=== PATIENT | male | born 1970 | race Two or more races ===

== ENCOUNTER 2017-07-18 20:15 | Emergency (ER) | payer BC, OTHER ==
[~2017-07-18] VITALS: Ht 175.3 cm; Wt 89.6 kg
[~2017-07-18 20:15] MED LIST: ENAL2.5T PO; ENAL20TA PO; GLYB5TAB3 PO; METF10002 PO; METF500T4 PO; PRAV40TA2 PO
[2017-07-18 20:19] VITALS: BP 153/91
== END 2017-07-18 22:45 | disposition home or self-care (01) ==
LOC: ED 22:30
DX: S43.102A Unspecified dislocation of left acromioclavicular joint, initial encounter (principal); S29.011A Strain of muscle and tendon of front wall of thorax, initial encounter; E11.9 Type 2 diabetes mellitus without complications; E78.00 Pure hypercholesterolemia, unspecified; I10 Essential (primary) hypertension; X58.XXXA Exposure to other specified factors, initial encounter; Y93.89 Activity, other specified; Y99.8 Other external cause status; Y92.89 Other specified places as the place of occurrence of the external cause
CPT/HCPCS: 99284

== ENCOUNTER 2018-05-01 14:20 | Emergency (ER) | payer BC, MEDICAID ==
[~2018-05-01] VITALS: Ht 175.3 cm; Wt 92.0 kg
[~2018-05-01 14:20] MED LIST changes: -METF500T4 PO; +METF500T5 PO
[2018-05-01 14:26] VITALS: BP 147/99
[2018-05-01] MEDS ORDERED: LIDOCAINE 2%, 20ML SQ ONE (14:30)
[2018-05-01] MEDS ORDERED: LIDOCAINE-MPF 2% ,5ML ONE (14:57)
== END 2018-05-01 16:02 | disposition home or self-care (01) ==
LOC: ED 15:56
DX: L02.11 Cutaneous abscess of neck (principal)
CPT/HCPCS: 10060; 99283

== ENCOUNTER 2018-05-03 15:33 | Emergency (ER) | payer MEDICAID ==
[~2018-05-03] VITALS: Ht 175.3 cm; Wt 90.1 kg
[2018-05-03 15:46] VITALS: BP 131/88
== END 2018-05-03 16:05 | disposition home or self-care (01) ==
LOC: ED 15:59
DX: Z48.01 Encounter for change or removal of surgical wound dressing (principal); I10 Essential (primary) hypertension; E11.9 Type 2 diabetes mellitus without complications; E78.00 Pure hypercholesterolemia, unspecified
CPT/HCPCS: 99283

== ENCOUNTER 2019-01-23 11:35 | Emergency (ER) | payer SELFPAY ==
[~2019-01-23] VITALS: Ht 172.7 cm; Wt 90.0 kg
[~2019-01-23 11:35] MED LIST changes: +METF500T17 PO; -METF500T5 PO
[2019-01-23] MEDS ORDERED: SODIUM CHLORIDE FLUSH 10ML SYR IVF ONE (12:30)
[2019-01-23 12:40] LABS: BASOPHILS # (AUTO) 0.07 x10^3/uL (0-0.1); BASOPHILS % (AUTO) 1 % (0-1); EOSINOPHILS # (AUTO) 0.04 x10^3/uL (0-0.4); EOSINOPHILS % (AUTO) 0 % (1-7); LYMPHOCYTES # (AUTO) 1.97 x10^3/uL (1-3.4); LYMPHOCYTES % (AUTO) 16 % (22-44); MD NO; MEAN CORPUSCULAR HEMOGLOBIN 29.1 pg (27.5-34.5); MEAN CORPUSCULAR HGB CONC 33.4 g/dL (33.2-36.2); MEAN CORPUSCULAR VOLUME 86.9 fL (81-97); MONOCYTES # (AUTO) 0.68 x10^3/uL (0.2-0.8); MONOCYTES % (AUTO) 6 % (2-9); NEUTROPHILS # (AUTO) 9.66 x10^3/uL (1.8-6.8); NEUTROPHILS % (AUTO) 78 % (42-75); PLATELET COUNT 262 x10^3/uL (130-400); RED BLOOD COUNT 5.31 x10^6/uL (4.38-5.82); RED CELL DISTRIBUTION WIDTH 15.2 % (9.4-14.8)
[2019-01-23 12:41] LABS: ANION GAP 6 mmol/L (5-15); CALCIUM 9.3 mg/dL (8.5-10.1); CHLORIDE 107 mmol/L (98-107); CREATININE 1.03 mg/dL (0.7-1.3)
--- NOTE | 2019-01-23 13:30 | NUR ---
PT TO ROOM AT THIS TIME.
--- NOTE | 2019-01-23 13:40 | NUR ---
PT TO ED FOR BURNING WITH URINATION AND BLOODY URINE SINCE LAST NIGHT WITH ASSOCIATED CHILLS. CONNECTED TO MONITORS. VSS. CALL LIGHT WITHIN REACH. AWAITING EDMD ASSESSMENT.
--- NOTE | 2019-01-23 14:07 | NUR ---
PT UPDATED ON POC. AWAITING UA RESULTS. VSS. NO NEEDS EXPRESSED. CALL LIGHT WTIHIN REACH.
[2019-01-23 14:16] LABS: CULTURE INDICATED? YES; MICROSCOPIC INDICATED
--- NOTE | 2019-01-23 14:37 | NUR ---
IV ESTABLISHED. VSS. NO NEEDS AT THIS TIME. CALL LIGHT WTIHIN REACH. AWAITING CT.
--- NOTE | 2019-01-23 14:52 | NUR ---
pa to bedside to update on poc. cancelled ct. awaiting further orders. vss. no needs at this time. call light within reach.
[2019-01-23 14:56] VITALS: BP 134/90
== END 2019-01-23 15:21 | disposition home or self-care (01) ==
LOC: ED 14:06
DX: N30.01 Acute cystitis with hematuria (principal); I10 Essential (primary) hypertension; E78.00 Pure hypercholesterolemia, unspecified; E11.9 Type 2 diabetes mellitus without complications
CPT/HCPCS: 36415; 80048; 81001; 82040; 85025; 87077; 87086; 87186; 99283

== ENCOUNTER 2020-09-16 14:31 | Emergency (ER) | payer OTHER ==
[~2020-09-16] VITALS: Ht 167.6 cm; Wt 86.8 kg
[~2020-09-16 14:31] MED LIST changes: -ENAL2.5T PO; +ENAL2.5T8 PO; -ENAL20TA PO; +ENAL20TA9 PO
--- NOTE | 2020-09-16 15:26 | NUR ---
PACKER DRIED BEEF: PT AMBULATORY TO ROOM FROM LOBBY
--- NOTE | 2020-09-16 15:30 | NUR ---
FIRST ENCOUTERMENT: PT BROUGHT IN BY DUE TO WITNESSED SYNCOPAL EPISODE. PER PT REPORT HE "GOT DIZZY AND LIGHTHEADED" AND PASSED OUT AND DOESN'T REMEMBER. STATED THAT PT DID NOT HIT HEAD, NECK OR BACK BUT PT HAS COMPLAINTS OF RIGHT SIDED HEAD PAIN. PT A&OX4.
[2020-09-16 15:31] VITALS: BP 145/95
[2020-09-16 15:33] LABS: BASOPHILS % (AUTO) 1 % (0-1); EOSINOPHILS % (AUTO) 0 % (1-7); LYMPHOCYTES % (AUTO) 16 % (22-44); MEAN CORPUSCULAR HEMOGLOBIN 28.4 pg (27.5-34.5); MEAN CORPUSCULAR HGB CONC 33.1 g/dL (33.2-36.2); MEAN PLATELET VOLUME 7.7 fL (7.4-10.4); MONOCYTES % (AUTO) 6 % (2-9); NEUTROPHILS % (AUTO) 77 % (42-75); PLATELET COUNT 306 x10^3/uL (130-400); RED BLOOD COUNT 5.99 x10^6/uL (4.38-5.82); RED CELL DISTRIBUTION WIDTH 15.5 % (9.4-14.8)
[2020-09-16 15:34] LABS: MD NO
[2020-09-16] MEDS ORDERED: ENAL20TA9 PO (15:34)
[2020-09-16 15:41] LABS: ALANINE AMINOTRANSFERASE 21 U/L (12-78); ALBUMIN 3.8 g/dL (3.4-5.0); ANION GAP 9 mmol/L (5-15); CALCIUM 9.1 mg/dL (8.5-10.1); CHLORIDE 109 mmol/L (98-107)
[2020-09-16 15:46] LABS: ALKALINE PHOSPHATASE 96 U/L (45-117); CREATININE 1.73 mg/dL (0.7-1.3); TOTAL PROTEIN 7.8 g/dL (6.4-8.2); TROPONIN I < 0.015 ng/mL (0.000-0.045)
[2020-09-16] MEDS ORDERED: ACETAMINOPHEN 325 MG TABLET PO ONE (16:00)
[2020-09-16] MEDS ORDERED: SODIUM CHLORIDE FLUSH 10ML SYR IVF ONE (16:00)
[2020-09-16] MEDS ORDERED: KETOROLAC 30 MG/1 ML IV ONE (16:00)
[2020-09-16] MEDS ORDERED: SODIUM CHLORIDE 0.9% 1,000ML IVBOLUS ONE (16:00)
--- NOTE | 2020-09-16 16:02 | NUR ---
REPORT TO PETER BENNETT TO ASSUME PRIMARY CARE OF PT.
[2020-09-16] MEDS ORDERED: KETOROLAC 30 MG/1 ML ONE (16:07)
[2020-09-16] MEDS ORDERED: ACETAMINOPHEN 500 MG TABLET ONE (16:08)
[2020-09-16] MEDS ORDERED: ACETAMINOPHEN 325 MG TABLET ONE (16:31)
== END 2020-09-16 18:07 | disposition home or self-care (01) ==
LOC: ED 17:04
DX: N28.9 Disorder of kidney and ureter, unspecified (principal); R94.4 Abnormal results of kidney function studies; R42 Dizziness and giddiness; R55 Syncope and collapse; R51.9 Headache, unspecified; R00.2 Palpitations; I10 Essential (primary) hypertension; R00.0 Tachycardia, unspecified; R00.9 Unspecified abnormalities of heart beat; E11.9 Type 2 diabetes mellitus without complications; E78.00 Pure hypercholesterolemia, unspecified
CPT/HCPCS: 36415; 70450; 71045; 80053; 82962; 84484; 85025; 93005; 96361; 96374; 99285; J1885; J7030

== ENCOUNTER 2021-01-16 11:11 | Outpatient (CLI) | payer SELFPAY ==
[~2021-01-16 11:11] MED LIST changes: +ERTA1VIA4 IV; +INSU100I11 SQ-INSULIN; +PIOG30TA67 PO
[2021-01-16] MEDS ORDERED: OMNIPAQUE 350 MG/ML, 100ML BOTTLE ONE (11:50)
== END 2021-01-16 23:59 | disposition home or self-care (01) ==
LOC: RAD 11:11
PROVIDERS: ATTEND Internal Medicine Infectious Disease
DX: K76.0 Fatty (change of) liver, not elsewhere classified (principal); N20.0 Calculus of kidney; K40.20 Bilateral inguinal hernia, without obstruction or gangrene, not specified as recurrent; K85.92 Acute pancreatitis with infected necrosis, unspecified; M51.36 Other intervertebral disc degeneration, lumbar region
CPT/HCPCS: 74177; Q9967

== ENCOUNTER 2021-04-05 19:14 | Emergency (ER) | payer SELFPAY ==
[~2021-04-05] VITALS: Ht 175.3 cm; Wt 85.8 kg
[2021-04-05 19:16] VITALS: BP 122/87
[2021-04-05] MEDS ORDERED: LIDOCAINE-MPF 1%, 5ML ONE ×2 (20:12→20:43)
== END 2021-04-05 21:39 | disposition home or self-care (01) ==
LOC: ED 21:34
DX: L72.3 Sebaceous cyst (principal); M54.2 Cervicalgia; L02.11 Cutaneous abscess of neck; I10 Essential (primary) hypertension; E11.9 Type 2 diabetes mellitus without complications
CPT/HCPCS: 10060